=== PATIENT | male | born 1960 | race Caucasian/White ===

== ENCOUNTER 2023-06-15 07:05 | Day surgery (SDC) | payer MEDICARE, OTHER ==
[2023-06-08 16:15] LABS: BASOPHILS % (AUTO) 0.7 % (0-1); BILIRUBIN,URINE NEGATIVE (Neg); CLARITY,URINE CLEAR (Clear); COLOR,URINE YELLOW (Yellow); EOSINOPHILS # (AUTO) 0.1 X10'3 (0-0.9); GLUCOSE, URINE NEGATIVE (Neg); KETONES,URINE NEGATIVE (Neg); LEUKOCYTE ESTERASE ,URINE NEGATIVE (Neg); LYMPHOCYTES # (AUTO) 1.3 X10'3 (1.1-4.8); LYMPHOCYTES % (AUTO) 22.1 % (21-51); MEAN CORPUSCULAR HEMOGLOBIN 30.5 PG (27.0-31.0); MEAN CORPUSCULAR HGB CONC 34.1 g/dL (33.0-36.5); MEAN CORPUSCULAR VOLUME 89.5 FL (78-98); MEAN PLATELET VOLUME 7.9 FL (7.4-10.4); MONOCYTES # (AUTO) 0.3 X10'3 (0-0.9); MONOCYTES % (AUTO) 5.5 % (2-12); NEUTROPHILS # (AUTO) 4.2 X10'3 (1.8-7.7); NEUTROPHILS % (AUTO) 70.7 % (42-75); NITRITES, URINE NEGATIVE (Neg); OCCULT BLOOD,URINE TRACE-INTACT (Neg); PH,URINE 6.5 (4.8-8.0); PRE OP HEMATOCRIT 47.3 % (42.0-52.0); PRE OP HEMOGLOBIN 16.1 g/dL (14.0-17.9); PRE OP PLATELET COUNT 254 X10'3 (140-440); PRE OP WHITE BLOOD COUNT 5.9 10'3 (4.8-10.8); PROTEIN,URINE NEGATIVE (Neg); RED BLOOD COUNT 5.28 X10'6 (4.70-6.10); RED CELL DISTRIBUTION WIDTH 13.3 % (11.5-14.5); UROBILINOGEN,URINE 0.2 E.U/dL (0.2-1.0)
[2023-06-08 16:22] LABS: UA COLLECTION TYPE CLN CATCH MIDSTREAM
[2023-06-08 16:23] LABS: PRE OP PROTIME 10.3 SECONDS (9.0-12.0); SQUAMOUS EPITHELIAL CELL,UR FEW /LPF (FEW)
[2023-06-08 16:24] LABS: BACTERIA,URINE NONE SEEN /HPF (Neg); RBC,URINE 0-2 /HPF (0-2); WBC,URINE 0-4 /HPF (0-4)
[2023-06-08 16:27] LABS: ALBUMIN 4.3 G/DL (3.4-5.0); ALBUMIN/GLOBULIN RATIO 1.5 (1.1-1.5); ALKALINE PHOSPHATASE 55 IU/L (46-116); BLOOD UREA NITROGEN 13 MG/DL (7-18); CALCIUM 9.3 MG/DL (8.5-10.1); CHLORIDE 101 MMOL/L (99-107); CREATININE 0.81 MG/DL (0.60-1.10); PRE OP ALT 39 U/L (30-65); PRE OP ANION GAP 8 (8-16); PRE OP AST 13 U/L (10-37); PRE OP GLUCOSE 189 MG/DL (70-104); PRE OP POTASSIUM 3.8 MMOL/L (3.4-5.1); PRE OP SODIUM 137 MMOL/L (135-145); TOTAL CARBON DIOXIDE 28.5 MMOL/L (24-32); TOTAL PROTEIN 7.2 G/DL (6.4-8.2); eGFR > 90 ML/MIN
[~2023-06-15] VITALS: Ht 188 cm; Wt 105.9 kg
[2023-06-15] VITALS (10 sets, daily range): BP systolic 139–166; BP diastolic 78–94; PULSE 80–92; RESP 9–19; TEMP 99.2; O2SAT 94–100
[~2023-06-15 07:05] MED LIST: AMLO10TA PO; ASPI-1265 PO; ATOR40TA71 PO; IBUP-1986 PO; LISI1TAB53 PO; cefazolin 2gm/D5W 100mL 100 ML IV ONE; famotidine 20mg tablet PO ONE; ringers solution, lacted 1,000 ML IV SCH; tranexamic acid inj. 1,000 MG in normal saline IV soln 100ML IV ONE
[2023-06-15] MEDS ORDERED: cloNIDine hcl/PF 100mcg/ml inj ONE (07:51)
[2023-06-15] MEDS ORDERED: fentaNYL/PF 50MCG/1 ML 2ML syringe ONE (07:54)
[2023-06-15] MEDS ORDERED: propofol inj 20 ML IV ONE (07:54)
[2023-06-15] MEDS ORDERED: midazolam 1 mg/ML 2ml injection ONE (07:54)
[2023-06-15] MEDS ORDERED: sevoflurane 250ml liquid IH ONE (07:56)
[2023-06-15] MEDS ORDERED: LIDOcaine 2% (20mg/ml) 5ml vial ONE (07:56)
[2023-06-15] MEDS ORDERED: ondansetron/PF 4mg/2ml inj IV PRN (09:30)
[2023-06-15] MEDS ORDERED: meperidine/PF 25mg/ml syringe IV PRN ×3 (09:30)
[2023-06-15] MEDS ORDERED: ringers solution, lacted 1,000 ML IV SCH (09:30)
[2023-06-15] MEDS ORDERED: morphine 2 MG/ML inj. syringe IV PRN (09:30)
[2023-06-15] MEDS ORDERED: proCHLORperazine 10 MG/2 ml inj IV PRN (09:30)
[2023-06-15] MEDS ORDERED: morphine 4 MG/ML inj SYRINge IV PRN (09:30)
[2023-06-15] MEDS ORDERED: vancomycin 1,000mg inj ONE (09:40)
[2023-06-15] MEDS ORDERED: ROPIVAcaine 0.5% (5mg/ml) 30ml vial ONE (09:58)
[2023-06-15] MEDS ORDERED: dexamethasone sod phosphate 4mg/ml inj. ONE (09:58)
[2023-06-15] MEDS ORDERED: ondansetron/PF 4mg/2ml inj ONE (09:58)
[2023-06-15] MEDS ORDERED: vancomycin 1,000mg inj IVT ONE (10:16)
== END 2023-06-15 11:22 | disposition home or self-care (01) ==
LOC: PAS 07:05
PROVIDERS: ATTEND Specialist
DX: M75.121 Complete rotator cuff tear or rupture of right shoulder, not specified as traumatic (principal); I10 Essential (primary) hypertension; E78.00 Pure hypercholesterolemia, unspecified; G89.18 Other acute postprocedural pain; Z72.89 Other problems related to lifestyle; Z79.899 Other long term (current) drug therapy; Z98.890 Other specified postprocedural states; Z79.01 Long term (current) use of anticoagulants
CPT/HCPCS: 23412; 29823; 36415; 64415; 80053; 81001; 82948; 85025; 85610; 85730; 86885; 86900; 86901; A6222; C1713; J0690; J0735; J1100; J2250; J2405; J2704; J2795; J3010; J3370; J3490; J7120; Z7506; Z7508; Z7512; A4565; A4618; A6449; A7000

== ENCOUNTER 2024-07-17 05:45 | Day surgery (SDC) | payer MEDICARE, OTHER ==
[2024-07-11 11:51] LABS: BILIRUBIN,URINE NEGATIVE (Neg); CLARITY,URINE CLEAR (Clear); COLOR,URINE YELLOW (Yellow); GLUCOSE, URINE NEGATIVE (Neg); KETONES,URINE NEGATIVE (Neg); LEUKOCYTE ESTERASE ,URINE NEGATIVE (Neg); NITRITES, URINE NEGATIVE (Neg); OCCULT BLOOD,URINE TRACE-INTACT (Neg); PH,URINE 6.5 (4.8-8.0); PROTEIN,URINE NEGATIVE (Neg); UROBILINOGEN,URINE 0.2 E.U/dL (0.2-1.0)
[2024-07-11 11:54] LABS: BASOPHILS # (AUTO) 0.1 X10'3 (0-0.2); BASOPHILS % (AUTO) 1.7 % (0-1); EOSINOPHILS # (AUTO) 0.1 X10'3 (0-0.9); EOSINOPHILS % (AUTO) 1.5 % (0-6); LYMPHOCYTES # (AUTO) 1.3 X10'3 (1.1-4.8); LYMPHOCYTES % (AUTO) 25.8 % (21-51); MEAN CORPUSCULAR HEMOGLOBIN 29.6 PG (27.0-31.0); MEAN CORPUSCULAR HGB CONC 32.8 g/dL (33.0-36.5); MEAN CORPUSCULAR VOLUME 90.2 FL (78-98); MONOCYTES # (AUTO) 0.4 X10'3 (0-0.9); MONOCYTES % (AUTO) 8.6 % (2-12); NEUTROPHILS # (AUTO) 3.2 X10'3 (1.8-7.7); NEUTROPHILS % (AUTO) 62.4 % (42-75); PRE OP HEMATOCRIT 46.1 % (42.0-52.0); PRE OP HEMOGLOBIN 15.1 g/dL (14.0-17.9); PRE OP PLATELET COUNT 300 X10'3 (140-440); PRE OP WHITE BLOOD COUNT 5.2 10'3 (4.8-10.8); RED BLOOD COUNT 5.11 X10'6 (4.70-6.10)
[2024-07-11 12:06] LABS: UA COLLECTION TYPE CLN CATCH MIDSTREAM
[2024-07-11 12:12] LABS: BACTERIA,URINE NONE SEEN /HPF (Neg); MUCUS STRANDS NONE SEEN /LPF (Neg); RBC,URINE 0-2 /HPF (0-2); SQUAMOUS EPITHELIAL CELL,UR NONE SEEN /LPF (FEW); WBC,URINE 0-4 /HPF (0-4)
[2024-07-11 12:13] LABS: ALBUMIN 4.3 G/DL (3.4-5.0); ALBUMIN/GLOBULIN RATIO 1.3 (1.1-1.5); ALKALINE PHOSPHATASE 71 IU/L (46-116); BLOOD UREA NITROGEN 14 MG/DL (7-18); BUN/CREATININE RATIO 19.7 (10.0-20.0); CALCIUM 9.2 MG/DL (8.5-10.1); CHLORIDE 102 MMOL/L (99-107); CREATININE 0.71 MG/DL (0.60-1.10); PRE OP ALT 33 U/L (30-65); PRE OP ANION GAP 8 (8-16); PRE OP AST 14 U/L (10-37); PRE OP BILIRUB, TOTAL 0.5 MG/DL (0.0-1.0); PRE OP GLUCOSE 159 MG/DL (70-104); PRE OP SODIUM 138 MMOL/L (135-145); TOTAL CARBON DIOXIDE 27.6 MMOL/L (24-32); TOTAL PROTEIN 7.6 G/DL (6.4-8.2); eGFR > 90 ML/MIN
[~2024-07-17] VITALS: Ht 188 cm; Wt 105.0 kg
[2024-07-17] VITALS (14 sets, daily range): BP systolic 103–158; BP diastolic 52–91; PULSE 52–86; RESP 13–19; TEMP 98.4; O2SAT 92–100
[2024-07-17] MEDS: tranexamic acid 1gm/0.7% sal. 100 ML IV ONE (05:30)
[~2024-07-17 05:45] MED LIST changes: -cefazolin 2gm/D5W 100mL 100 ML IV ONE; -famotidine 20mg tablet PO ONE; -ringers solution, lacted 1,000 ML IV SCH; -tranexamic acid inj. 1,000 MG in normal saline IV soln 100ML IV ONE
[2024-07-17] MEDS: famotidine 20mg tablet PO ONE (06:19)
[2024-07-17] MEDS: ringers solution, lacted 1,000 ML IV SCH (06:19)
[2024-07-17] MEDS: ceFAZolin 2gm in dextrose, iso 50 ML IV ONE (06:21)
[2024-07-17] MEDS ORDERED: sevoflurane 250ml liquid IH ONE (07:08)
[2024-07-17] MEDS ORDERED: cloNIDine hcl/PF 100mcg/ml inj ONE (07:12)
[2024-07-17] MEDS ORDERED: midazolam 1 mg/ML 2ml injection ONE (07:13)
[2024-07-17] MEDS ORDERED: morphine 2 MG/ML inj. syringe IV PRN (07:45)
[2024-07-17] MEDS ORDERED: proCHLORperazine 10 MG/2 ml inj IV PRN (07:45)
[2024-07-17] MEDS ORDERED: morphine 4 MG/ML inj SYRINge IV PRN (07:45)
[2024-07-17] MEDS ORDERED: hydrALAZINE 20mg/ml inj. IV PRN (07:45)
[2024-07-17] MEDS ORDERED: labetalol 20mg/4ml (5mg/ml) syringe IV PRN (07:45)
[2024-07-17] MEDS ORDERED: ringers solution, lacted 1,000 ML IV SCH (07:45)
[2024-07-17] MEDS ORDERED: meperidine/PF 25mg/ml syringe IV PRN ×3 (07:45)
[2024-07-17] MEDS ORDERED: ondansetron/PF 4mg/2ml inj IV PRN (07:45)
[2024-07-17] MEDS ORDERED: fentaNYL/PF 50MCG/1 ML 2ML syringe ONE (08:28)
[2024-07-17] MEDS: acetaminophen 1,000mg/100ml IV 100 ML IV ONE (11:17)
== END 2024-07-17 12:38 | disposition home or self-care (01) ==
LOC: PAS 05:45
PROVIDERS: ATTEND Specialist
DX: M75.101 Unspecified rotator cuff tear or rupture of right shoulder, not specified as traumatic (principal); S43.431A Superior glenoid labrum lesion of right shoulder, initial encounter; M75.21 Bicipital tendinitis, right shoulder; Z79.899 Other long term (current) drug therapy; X58.XXXA Exposure to other specified factors, initial encounter; Y93.89 Activity, other specified; Y92.89 Other specified places as the place of occurrence of the external cause; Z79.01 Long term (current) use of anticoagulants; Y99.8 Other external cause status; I10 Essential (primary) hypertension; E11.9 Type 2 diabetes mellitus without complications; E78.5 Hyperlipidemia, unspecified; Z98.890 Other specified postprocedural states; G89.18 Other acute postprocedural pain
CPT/HCPCS: 23412; 23430; 29822; 36415; 64415; 71046; 80053; 81001; 85025; 85610; 85730; 86885; 86900; 86901; A4565; A4618; A6402; A6455; A7000; C1713; J0131; J0690; J0735; J1100; J2003; J2250; J2405; J2704; J2710; J2795; J3010; J3490; J7120; Z7506; Z7508; Z7512; Z7610; A6449